=== PATIENT | female | born 2000 ===

== ENCOUNTER 2020-11-21 11:11 | Outpatient (CLI) | payer OTHER ==
[2020-11-21] MEDS ORDERED: LACTATED RINGERS 500 ML IV ONE (11:45)
[2020-11-21] MEDS: LACTATED RINGERS 1,000 ML IV SCH ×2 (14:49→14:50)
--- NOTE | 2020-11-21 15:02 | Ultrasound Report ---
Limited abdominal Ultrasound Biophysical profile HISTORY: decreased movement. TECHNIQUE: Grayscale and color imaging performed. COMPARISON: None FINDINGS: There is a single viable intrauterine gestation with cephalic presentation and RISHI of 20 cm . Heart rate is 130 bpm. On biophysical profile, the fetus received a score of 2 out of 2 for breathing, movement, posture/ton e, and RISHI. Total score was 8 out of 8. IMPRESSION: 1. Single viable intrauterine gestation. 2. Normal biophysical profile. Signer Name: Conor Christie MD Signed: 11/21/2020 2:57 PM Workstation Name: [id number]
[2020-11-21] MEDS ORDERED: TERBUTALINE 1 MG/1 ML INJ ONE (15:12)
[2020-11-21 15:46] VITALS: BP 113/63
[2020-11-21] MEDS ORDERED: TERBUTALINE 1 MG/1 ML INJ SUB-Q SCH (16:00)
== END 2020-11-21 16:07 | disposition home or self-care (01) ==
LOC: TRG 11:11 → APU 11:16 → TRG 16:07
PROVIDERS: ATTEND Obstetrics & Gynecology
DX: O36.8130 Decreased fetal movements, third trimester, not applicable or unspecified (principal); O47.03 False labor before 37 completed weeks of gestation, third trimester; O99.353 Diseases of the nervous system complicating pregnancy, third trimester; G43.909 Migraine, unspecified, not intractable, without status migrainosus; Z3A.30 30 weeks gestation of pregnancy
CPT/HCPCS: 59025; 76815; 76819; 96360; 96372; J3105; J7120; 96361

== ENCOUNTER 2021-02-02 03:01 | Inpatient (IN) | payer OTHER ==
--- NOTE | 2021-02-02 04:10 | History and Physical Report ---
History of Present Illness Date of examination: 02/02/21 Date of admission: 02/02/2021 Chief complaint: contractions History of present illness: EDC Confirmation: 01/26/2021 Gestational Age: 41 weeks Past History : 2 Term Births: 0 Premature Births: 0 Living Children: 0 Para: 0 Mult. Births: 0 Prev : 0 Prev. attempt? 0 Aborta: 1 Elect. Ab: 1 Spont. Ab: 0 Ectopics: 0 # 1 Weeks Gestation: 10 Delivery type: EAB Past Medical History: Neurologic Disorder- Migraines Pulmonary Stenosis Past Surgical History: Reviewed history and no changes required: negative Past Medical History Anesthesia Complications: negative Anemia: negative Autoimmune Disorder: negative Bleeding Disorder: negative Blood Transfusions: negative Breast Disease: negative Diabetes: negative Heart Disease: negative Hypertension: negative Hepatitis/Liver Disease: negative Kidney Disease/UTI: negative Neurologic/Epilepsy/Migraines: yes Phlebitis/Varicosities: negative Psychiatric: negative Pulmonary Disease/Asthma: negative Thyroid Disease: negative Hospitalizations: negative Surgery (Non-research and development specialist): negative Abnormal PAP: negative DEE Exposure: negative Infertility: negative Uterine Anomaly: negative Uterine Surgery (not C/S): negative Other Gynecologic Problems: negative 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 of genital herpes: no Partner hx. of genital herpes: no Rash, Viral, or Febrile illness since last LMP? no Varicella/Chicken Pox Status: Immunized TB Risk: no Genetic History Congenital Heart Defect: Mom: no Dad: no Rene Disease: Mom: no Dad: no Thalassemia Mom: no Dad: no Neural Tube Defect Mom: no Dad: no Down's Syndrome Mom: no Dad: no Ronan-Sachs Mom: no Dad: no Sickle Cell Disease/Trait Mom: no Dad: no Hemophilia Mom: no Dad: no Muscular Dystrophy Mom: no Dad: no Cystic Fibrosis Mom: no Dad: no Vickie Chorea Mom: no Dad: no Mental Retardation Mom: no Dad: no Fragile X Mom: no Dad: no Other Genetic/Chromosomal Disorder Mom: no Dad: no Child w/other defect Mom: no Dad: no Enviromental Exposures Xray Exposure: no Medication, drug, or alcohol use since LMP: no Chemical/Other Exposure: no Exposure to Cat Liter: yes Hx of Parvovirus (Fifth Disease): no Occupational Exposure to Children: none Current Allergies (reviewed today): No known allergies Past History Past Medical History: other (see HPI) Past Surgical History: other (see HPI) 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) Family/Genetic History: other (see HPI) Social history: other (see HPI) - Obstetrical History Expected Date of Delivery: 01/26/21 Actual Gestation: 41 Week(s) 0 Day(s) : 2 Para: 0 Hx # Term Pregnancies: 0 Number of Pregnancies: 0 Spontaneous Abortions: 0 Induced : 1 Number of Living Children: 0 Medications and Allergies Allergies Allergy/AdvReac Type Severity Reaction Status Date / Time No Known Allergies Allergy Unverified 11/21/20 12:37 Review of Systems All systems: negative Genitourinary: contractions - Vital Signs Vital signs: Vital Signs Temp Pulse Resp BP 98.8 F 105 H 18 108/58 02/02/21 03:17 02/02/21 03:17 02/02/21 03:17 02/02/21 03:17 Temp Pulse Resp BP Pulse Ox 98.8 F 105 H 18 108/58 02/02/21 03:17 02/02/21 03:17 02/02/21 03:17 02/02/21 03:17 - Physical Exam Breasts: Positive: deferred Cardiovascular: Regular rate Lungs: Positive: Normal air movement Abdomen: Positive: normal appearance, soft Genitourinary (Female): Positive: normal external genitalia, normal perenium Vulva: both: normal Vagina: Positive: normal moisture Uterus: Positive: normal size, normal contour Anus/Rectum: Positive: normal perianal skin Extremities: Positive: normal - Obstetrical FHR: auscultation normal, category 1 Uterine Contraction Monitor Mode: External Uterine Contraction Pattern: Regular Uterine Tone Measurement Phase: Contraction Uterine Contraction Intensity: Mild Results All other labs normal. Tests: (1) Ct, Ng, Trich vag by EMRE ([id number]) Order Note: Clinical Information: SRC:VR SRC:UR Chlamydia by EMRE Negative Negative *1 Gonococcus by EMRE Negative Negative *2 Trich vag by EMRE Negative Negative *3 Tests: (2) Strep Gp B EMRE ([id number]) ! Strep Gp B EMRE Negative Negative *4 Document Creation Date: 12/26/2020 2:15 PM Tests: (1) Profile I ([id number]) Order Note: Clinical Information: SRC:UR SRC:UR HBsAg Screen Negative Negative *1 RPR Non Reactive Non Reactive *2 Rubella Antibodies, IgG 1.43 index Immune >0.99 *3 Non-immune <0.90 Equivocal 0.90 - 0.99 Immune >0.99 ABO Grouping O *4 Rh Factor Positive *5 Please note: Prior records for this patient's ABO / Rh type are not available for additional verification. Antibody Screen Negative Negative *6 WBC 7.1 x10E3/uL 3.4-10.8 *7 RBC 3.81 x10E6/uL 3.77-5.28 *8 Hemoglobin 12.0 g/dL 11.1-15.9 *9 Hematocrit 36.2 % 34.0-46.6 *10 MCV 95 fL 79-97 *11 MCH 31.5 pg 26.6-33.0 *12 MCHC 33.1 g/dL 31.5-35.7 *13 RDW 13.0 % 11.7-15.4 *14 Platelets 211 x10E3/uL 150-450 *15 Neutrophils 65 % Not Estab. *16 Lymphs 29 % Not Estab. *17 Monocytes 5 % Not Estab. *18 Eos 1 % Not Estab. *19 Basos 0 % Not Estab. *20 ! Immature Cells <No Reported Value> *21 Neutrophils (Absolute) 4.7 x10E3/uL 1.4-7.0 *22 Lymphs (Absolute) 2.1 x10E3/uL 0.7-3.1 *23 Monocytes(Absolute) 0.3 x10E3/uL 0.1-0.9 *24 Eos (Absolute) 0.1 x10E3/uL 0.0-0.4 *25 Baso (Absolute) 0.0 x10E3/uL 0.0-0.2 *26 ! Immature Granulocytes 0 % Not Estab. *27 ! Immature Grans (Abs) 0.0 x10E3/uL 0.0-0.1 *28 ! NRBC <No Reported Value> *29 Hematology Comments: <No Reported Value> *30 Tests: (2) Ct, Ng, Trich vag by EMRE ([id number]) Chlamydia by EMRE Negative Negative *31 Gonococcus by EMRE Negative Negative *32 Trich vag by EMRE Negative Negative *33 Tests: (3) HB Solu + Rflx Frac ([id number]) Hemoglobin (Hgb) Solubility Negative Negative *34 Tests: (4) Toxoplasma gondii Ab, IgG ([id number]) ! Toxoplasma gondii Ab,IgG <3.0 IU/mL 0.0-7.1 *35 Negative <7.2 Equivocal 7.2 - 8.7 Positive >8.7 Tests: (5) Cytomegalovirus (CMV) Ab, IgG ([id number]) ! Cytomegalovirus (CMV) Ab, IgG <0.60 U/mL 0.00-0.59 *36 Negative <0.60 Equivocal 0.60 - 0.69 Positive >0.69 Tests: (6) HIV Ag/Ab with Reflex ([id number]) HIV Screen 4th Generation wRfx Non Reactive Non Reactive *37 Tests: (7) HCV Ab w/Rflx to Verification ([id number]) ! HCV Ab <0.1 s/co ratio 0.0-0.9 *38 Tests: (8) Comment: ([id number]) ! Comment: SPRCS *39 Non reactive HCV antibody screen is consistent with no HCV infection, unless recent infection is suspected or other evidence exists to indicate HCV infection. Effective September 02, 2020 HCV Ab w/Rflx to Verification will be made non-orderable. [facility] [id number] HCV Antibody reflex to EMRE. Tests: (9) Urine Culture, Routine ([id number]) Urine Culture, Routine Final report *40 Tests: (10) Result ([id number]) ! Result 1 No growth *41 Performed At: , [address] [id number] Dameon Diaz MD Phone: [phone] Note: An exclamation branden (!) indicates a result that was not dispersed into the flowsheet. Document Creation Date: 07/30/2020 11:16 AM Ultrasound: report reviewed (on 01/31/21 US in office with EFW 36% 7lbs 6oz RISHI 12cm) Assessment and Plan pt @41wks presents to triage with c/o contractions for the last few hours <10mins apart, SVE 3/70/-3 per RN; pt desires admission to labor and delivery. Labs and records reviewed; Pt reports geophysical support specialist report WNL and pt ok to have vaginal delivery. POC d/w with pt. - Patient Problems (1) Pulmonary stenosis Current Visit: Yes Status: Acute (2) Active labor Current Visit: Yes Status: Acute (3) 41 weeks gestation of Current Visit: Yes Status: Acute
[2021-02-02] MEDS ORDERED: TERBUTALINE 1 MG/1 ML INJ SUB-Q PRN (04:18)
[2021-02-02] MEDS ORDERED: OXYTOCIN 10 UNIT/1 ML INJ IM PRN (04:18)
[2021-02-02] MEDS ORDERED: LIDOCAINE (2%) 20 MG/1 ML VIAL 20 ML MDV INFILTRATI ONE (04:18)
[2021-02-02] MEDS ORDERED: LOPERAMIDE 2 MG CAP PO PRN (04:18)
[2021-02-02] MEDS ORDERED: miSOPROStol 200 MCG TAB PR PRN (04:18)
[2021-02-02] MEDS ORDERED: METHYLERGONOVINE MALEATE 0.2 MG/ML VIAL IM PRN (04:18)
[2021-02-02] MEDS ORDERED: MINERAL OIL 30 ML ORAL LIQD PO PRN (04:18)
[2021-02-02] MEDS ORDERED: ONDANSETRON 4 MG/2 ML INJ IV PRN (04:18)
[2021-02-02] MEDS ORDERED: CARBOPROST TROMETHAMINE 250 MCG/1 ML INJ IM PRN (04:18)
[2021-02-02] MEDS ORDERED: fentaNYL 100 MCG/2 ML INJ IV PRN ×2 (04:18→08:00)
[2021-02-02] MEDS ORDERED: ePHEDrine SULFATE 50 MG/1 ML INJ IV PRN ×2 (04:18→19:14)
[2021-02-02] MEDS: LACTATED RINGERS 1,000 ML IV SCH ×3 (04:51→20:05)
[2021-02-02 04:53] LABS: Hematocrit 33.8 % (30.3-42.9); Hemoglobin 11.5 gm/dl (10.1-14.3); Mean Corpuscular HGB Conc 34 % (30-34); Mean Corpuscular Volume 93 fl (79-97); Platelet Count 221 K/mm3 (140-440); Red Blood Count 3.62 M/mm3 (3.65-5.03); Red Cell Distribution Width 15.2 % (13.2-15.2)
[2021-02-02] MEDS ORDERED: OXYTOCIN DRIP 30 UNITS/500 ML BAG IV SCH ×2 (05:00→23:00)
--- NOTE | 2021-02-02 13:10 | Event Note ---
Date: 02/02/21 Pt sitting up in bed, reports feeling some contractions but overall resting. SVE /-2; Augmentation discussed with pt and pt agrees. Orders placed. Pt reports desire for epidural. POC reviewed and all questions addressed.
[2021-02-02] MEDS ORDERED: OXYTOCIN DRIP 30,000 MILLIUNITS/500 ML BAG IV ONE (14:00)
[2021-02-02] MEDS ORDERED: NALOXONE 2 MG/2 ML INJ IV PRN (19:14)
--- NOTE | 2021-02-02 19:15 | Anesthesia Consultation ---
Anesthesia Consult and Med Hx Date of service: 02/02/21 - Airway Anesthetic Teeth Evaluation: Good ROM Head & Neck: Adequate Mental/Hyoid Distance: Adequate Mallampati Class: Class II Intubation Access Assessment: Probably Good - Pulmonary Exam CTA: Yes - Cardiac Exam Cardiac Exam: RRR - Pre-Operative Health Status ASA Pre-Surgery Classification: ASA2 Proposed Anesthetic Plan: Epidural - Pulmonary Hx Smoking: No Hx Asthma: No Hx Respiratory Symptoms: No SOB: No COPD: No Home Oxygen Therapy: No Hx Pneumonia: No Hx Sleep Apnea: No - Cardiovascular System Hx Hypertension: No Hx Coronary Artery Disease: No Hx Heart Attack/AMI: No Hx Angina: No Hx Percutaneous Transluminal Coronary Angioplasty (PTCA): No Hx Cardia Arrhythmia: No Hx Pacemaker: No Hx Internal Defibrillator: No Hx Valvular Heart Disease: No Hx Heart Murmur: No Hx Peripheral Vascular Disease: No - Central Nervous System Hx Neuromuscular Disorder: Yes (migraine ) Hx Seizures: No CVA: No Hx Back Pain: No Hx Psychiatric Problems: Yes (depression) - Gastrointestinal Hx Ulcer: No Hx Gastroesophageal Reflux Disease: Yes - Endocrine Hx Renal Disease: No Hx End Stage Renal Disease: No Hx Cirrhosis: No Hx Liver Disease: No Hx Insulin Dependent Diabetes: No Hx Non-Insulin Dependent Diabetes: No Hx Thyroid Disease: No Hx Hypothyroidism: No Hx Hyperthyroidism: No - Hematic Hx Anemia: No Hx Sickle Cell Disease: No - Other Systems Hx Alcohol Use: No Hx Substance Use: No Hx Cancer: No Hx Obesity: Yes
[2021-02-02] MEDS ORDERED: fentaNYL-BUPIV 2 MCG/ML-0.125% 200 MCG/100 ML BAG EPIDURAL SCH (20:00)
--- NOTE | 2021-02-02 20:05 | Progress Note ---
Labor Epidural - Labor Epidural Start Time: 19:27 Stop Time: 19:44 Performed by:: GLORIA NOVA Procedure: Patient is requesting a laboring epidural for laboring pain. Patient IDed, H&P reviewed, all questions and concerns were answered, and consent was signed. Timeout was performed at bedside. Patient in sitting position. Sterile prep and drape was performed. [3] ml of 1% lidocaine skin wheal at L[3]- L [4]. 18- gauge Tuohy epidural needle was advanced to loss of resistance with saline technique 7cm. Negative CSF negative blood. Epidural catheter advanced to [12] centimeters. [NEGATIVE] Aspiration [NEGATIVE] test dose. Sterile dressing applied. Patient tolerated procedure.
[2021-02-02] MEDS ORDERED: FAMOTIDINE 20 MG/2 ML INJ IV ONE (22:28)
[2021-02-02] MEDS ORDERED: BICITRA ORAL LIQD 30ML PO ONE (22:28)
[2021-02-02] MEDS ORDERED: METOCLOPRAMIDE 10 MG/2 ML INJ IV ONE (22:28)
[2021-02-02] MEDS ORDERED: AZITHROMYCIN/NS 500 MG/250 ML 500 MG/250 ML BAG IV ONE (22:28)
[2021-02-02] MEDS ORDERED: METHYLERGONOVINE MALEATE 0.2 MG/ML VIAL IM ONE (22:29)
[2021-02-02] MEDS ORDERED: miSOPROStol 200 MCG TAB ONE (22:29)
[2021-02-02] MEDS ORDERED: CARBOPROST TROMETHAMINE 250 MCG/1 ML INJ IM ONE (22:29)
[2021-02-02] MEDS ORDERED: LACTATED RINGERS 1,000 ML IV SCH (22:30)
--- NOTE | 2021-02-02 22:35 | Progress Note ---
Assessment and Plan Pt comfortable s/p epidural; FHT's CAT2 with 5 minute decel and SVE unchanged [id number], despite augmentation. Pitocin turned off. Dr. [place] made aware and en route to hospital. Pt consented for C/S and new orders placed. - Patient Problems (1) Pulmonary stenosis Current Visit: Yes Status: Acute (2) Active labor Current Visit: Yes Status: Acute (3) 41 weeks gestation of Current Visit: Yes Status: Acute Subjective - Subjective Date of service: 02/02/21 Principal diagnosis: IUP @ 41wks, active labor Patient reports: no new complaints Objective - Vital Signs Vital Signs: Vital Signs - 12hr 02/02/21 02/02/21 02/02/21 10:36 10:41 10:46 Temperature Pulse Rate 107 H 100 H 92 H Respiratory Rate Blood Pressure O2 Sat by Pulse 98 97 97 Oximetry 02/02/21 02/02/21 02/02/21 10:51 10:56 11:01 Temperature Pulse Rate 98 H 94 H 92 H Respiratory Rate Blood Pressure O2 Sat by Pulse 98 98 97 Oximetry 02/02/21 02/02/21 02/02/21 11:03 11:07 11:12 Temperature Pulse Rate 119 H 54 L 102 H Respiratory Rate Blood Pressure O2 Sat by Pulse 90 80 L 99 Oximetry 02/02/21 02/02/21 02/02/21 11:17 11:22 11:27 Temperature Pulse Rate 105 H 105 H 96 H Respiratory Rate Blood Pressure O2 Sat by Pulse 98 98 98 Oximetry 02/02/21 02/02/21 02/02/21 11:32 11:37 11:42 Temperature Pulse Rate 95 H 98 H 94 H Respiratory Rate Blood Pressure O2 Sat by Pulse 98 98 98 Oximetry 02/02/21 02/02/21 02/02/21 11:47 11:52 11:57 Temperature Pulse Rate 101 H 104 H 97 H Respiratory Rate Blood Pressure O2 Sat by Pulse 98 98 99 Oximetry 02/02/21 02/02/21 02/02/21 12:02 12:07 12:12 Temperature Pulse Rate 104 H 99 H 100 H Respiratory Rate Blood Pressure O2 Sat by Pulse 99 98 98 Oximetry 02/02/21 02/02/21 02/02/21 12:17 12:22 12:27 Temperature Pulse Rate 97 H 96 H 96 H Respiratory Rate Blood Pressure O2 Sat by Pulse 99 100 99 Oximetry 02/02/21 02/02/21 02/02/21 12:32 12:37 12:42 Temperature Pulse Rate 103 H 102 H 103 H Respiratory Rate Blood Pressure O2 Sat by Pulse 99 98 99 Oximetry 02/02/21 02/02/21 02/02/21 12:47 12:52 12:57 Temperature Pulse Rate 103 H 95 H 99 H Respiratory Rate Blood Pressure O2 Sat by Pulse 99 98 98 Oximetry 02/02/21 02/02/21 02/02/21 13:02 13:07 13:12 Temperature Pulse Rate 97 H 98 H 98 H Respiratory Rate Blood Pressure O2 Sat by Pulse 100 99 98 Oximetry 02/02/21 02/02/21 02/02/21 13:17 13:22 13:27 Temperature Pulse Rate 102 H 101 H 115 H Respiratory Rate Blood Pressure O2 Sat by Pulse 98 99 99 Oximetry 02/02/21 02/02/21 02/02/21 13:32 13:37 13:42 Temperature Pulse Rate 100 H 100 H 103 H Respiratory Rate Blood Pressure O2 Sat by Pulse 99 100 100 Oximetry 02/02/21 02/02/21 02/02/21 13:47 13:52 13:57 Temperature Pulse Rate 97 H 92 H 97 H Respiratory Rate Blood Pressure O2 Sat by Pulse 99 100 98 Oximetry 02/02/21 02/02/21 02/02/21 14:04 14:05 14:09 Temperature 97.8 F Pulse Rate 183 H 101 H Respiratory 18 Rate Blood Pressure O2 Sat by Pulse 90 99 Oximetry 02/02/21 02/02/21 02/02/21 14:14 14:19 14:24 Temperature Pulse Rate 98 H 99 H 93 H Respiratory Rate Blood Pressure O2 Sat by Pulse 100 100 100 Oximetry 02/02/21 02/02/21 02/02/21 14:29 14:34 14:39 Temperature Pulse Rate 100 H 105 H 105 H Respiratory Rate Blood Pressure O2 Sat by Pulse 100 100 100 Oximetry 02/02/21 02/02/21 02/02/21 14:44 14:49 14:54 Temperature Pulse Rate 108 H 94 H 99 H Respiratory Rate Blood Pressure O2 Sat by Pulse 99 100 100 Oximetry 02/02/21 02/02/21 02/02/21 14:59 15:04 15:09 Temperature Pulse Rate 92 H 87 87 Respiratory Rate Blood Pressure O2 Sat by Pulse 99 99 99 Oximetry 02/02/21 02/02/21 02/02/21 15:14 15:19 15:24 Temperature Pulse Rate 84 116 H 91 H Respiratory Rate Blood Pressure O2 Sat by Pulse 98 97 99 Oximetry 02/02/21 02/02/21 02/02/21 15:29 15:34 15:39 Temperature Pulse Rate 98 H 104 H 103 H Respiratory Rate Blood Pressure O2 Sat by Pulse 98 98 99 Oximetry 02/02/21 02/02/21 02/02/21 15:44 15:49 15:54 Temperature Pulse Rate 87 90 92 H Respiratory Rate Blood Pressure O2 Sat by Pulse 98 98 98 Oximetry 02/02/21 02/02/21 02/02/21 15:59 16:04 16:09 Temperature Pulse Rate 91 H 83 88 Respiratory Rate Blood Pressure O2 Sat by Pulse 98 99 98 Oximetry 02/02/21 02/02/21 02/02/21 16:14 16:19 16:24 Temperature Pulse Rate 95 H 100 H 90 Respiratory Rate Blood Pressure O2 Sat by Pulse 99 98 98 Oximetry 02/02/21 02/02/21 02/02/21 16:29 16:34 16:38 Temperature Pulse Rate 87 110 H Respiratory Rate Blood Pressure O2 Sat by Pulse 99 99 88 Oximetry 02/02/21 02/02/21 02/02/21 16:39 16:44 16:49 Temperature Pulse Rate 104 H 111 H 94 H Respiratory Rate Blood Pressure O2 Sat by Pulse 99 98 98 Oximetry 02/02/21 02/02/21 02/02/21 16:54 16:59 17:04 Temperature Pulse Rate 115 H 97 H 109 H Respiratory Rate Blood Pressure O2 Sat by Pulse 98 99 100 Oximetry 02/02/21 02/02/21 02/02/21 17:09 17:14 17:19 Temperature Pulse Rate 103 H 100 H 99 H Respiratory Rate Blood Pressure O2 Sat by Pulse 100 99 99 Oximetry 02/02/21 02/02/21 02/02/21 17:24 17:29 17:34 Temperature Pulse Rate 100 H 108 H 106 H Respiratory Rate Blood Pressure O2 Sat by Pulse 99 99 99 Oximetry 02/02/21 02/02/21 02/02/21 17:39 17:44 17:49 Temperature Pulse Rate 98 H 98 H 100 H Respiratory Rate Blood Pressure O2 Sat by Pulse 100 98 98 Oximetry 02/02/21 02/02/21 02/02/21 17:54 17:59 18:04 Temperature Pulse Rate 99 H 97 H 113 H Respiratory Rate Blood Pressure O2 Sat by Pulse 99 99 98 Oximetry 02/02/21 02/02/21 02/02/21 18:09 18:14 18:19 Temperature Pulse Rate 107 H 117 H 105 H Respiratory Rate Blood Pressure O2 Sat by Pulse 99 97 99 Oximetry 02/02/21 02/02/21 02/02/21 18:24 18:29 18:34 Temperature Pulse Rate 120 H 116 H 118 H Respiratory Rate Blood Pressure O2 Sat by Pulse 98 98 99 Oximetry 02/02/21 02/02/21 02/02/21 18:39 18:44 18:49 Temperature Pulse Rate 129 H 106 H 108 H Respiratory Rate Blood Pressure O2 Sat by Pulse 98 98 99 Oximetry 02/02/21 02/02/21 02/02/21 18:54 18:59 19:04 Temperature Pulse Rate 107 H 104 H 107 H Respiratory Rate Blood Pressure O2 Sat by Pulse 100 99 99 Oximetry 02/02/21 02/02/21 02/02/21 19:06 19:11 19:12 Temperature Pulse Rate 80 83 Respiratory Rate Blood Pressure O2 Sat by Pulse 87 85 79 L Oximetry 02/02/21 02/02/21 02/02/21 19:15 19:16 19:18 Temperature 98.5 F Pulse Rate 114 H 115 H Respiratory 18 Rate Blood Pressure 127/82 O2 Sat by Pulse 98 Oximetry 02/02/21 02/02/21 02/02/21 19:21 19:23 19:26 Temperature Pulse Rate 107 H 110 H 116 H Respiratory Rate Blood Pressure 128/82 117/72 O2 Sat by Pulse 99 99 Oximetry 02/02/21 02/02/21 02/02/21 19:28 19:30 19:31 Temperature Pulse Rate 114 H 120 H 117 H Respiratory Rate Blood Pressure 128/73 134/65 O2 Sat by Pulse 98 Oximetry 02/02/21 02/02/21 02/02/21 19:32 19:35 19:36 Temperature Pulse Rate 120 H 117 H 111 H Respiratory Rate Blood Pressure 132/66 148/65 128/68 O2 Sat by Pulse 99 Oximetry 02/02/21 02/02/21 02/02/21 19:38 19:40 19:41 Temperature Pulse Rate 116 H 123 H 123 H Respiratory Rate Blood Pressure 138/60 136/63 O2 Sat by Pulse 99 Oximetry 02/02/21 02/02/21 02/02/21 19:42 19:44 19:46 Temperature Pulse Rate 123 H 123 H 118 H Respiratory Rate Blood Pressure 135/82 132/65 127/63 O2 Sat by Pulse 99 Oximetry 02/02/21 02/02/21 02/02/21 19:48 19:55 19:56 Temperature Pulse Rate 120 H 108 H 111 H Respiratory Rate Blood Pressure 128/80 123/64 122/72 O2 Sat by Pulse 99 Oximetry 02/02/21 02/02/21 02/02/21 19:58 20:00 20:02 Temperature Pulse Rate 105 H 91 H 108 H Respiratory Rate Blood Pressure 124/72 128/77 121/73 O2 Sat by Pulse 99 Oximetry 02/02/21 02/02/21 02/02/21 20:04 20:05 20:06 Temperature Pulse Rate 100 H 103 H 101 H Respiratory Rate Blood Pressure 122/73 122/71 O2 Sat by Pulse 98 Oximetry 02/02/21 02/02/21 02/02/21 20:08 20:10 20:14 Temperature Pulse Rate 110 H 106 H 102 H Respiratory Rate Blood Pressure 118/67 122/80 O2 Sat by Pulse 97 Oximetry 02/02/21 02/02/21 02/02/21 20:15 20:19 20:20 Temperature Pulse Rate 108 H 106 H 104 H Respiratory Rate Blood Pressure 126/82 O2 Sat by Pulse 98 97 Oximetry 02/02/21 02/02/21 02/02/21 20:24 20:25 20:29 Temperature Pulse Rate 107 H 100 H 93 H Respiratory Rate Blood Pressure 123/79 119/75 O2 Sat by Pulse 97 Oximetry 02/02/21 02/02/21 02/02/21 20:30 20:34 20:35 Temperature Pulse Rate 94 H 95 H 96 H Respiratory Rate Blood Pressure 121/74 O2 Sat by Pulse 99 99 Oximetry 02/02/21 02/02/21 02/02/21 20:39 20:40 20:44 Temperature Pulse Rate 110 H 106 H 102 H Respiratory Rate Blood Pressure 120/72 125/81 O2 Sat by Pulse 98 Oximetry 0602/02/21 02/02/21 20:45 20:50 20:55 Temperature Pulse Rate 98 H 102 H 94 H Respiratory Rate Blood Pressure 141/76 147/74 O2 Sat by Pulse 98 99 99 Oximetry 02/02/21 02/02/21 02/02/21 20:59 21:00 21:05 Temperature Pulse Rate 96 H 94 H 99 H Respiratory Rate Blood Pressure 134/70 116/62 O2 Sat by Pulse 98 98 Oximetry 02/02/21 02/02/21 02/02/21 21:09 21:10 21:14 Temperature Pulse Rate 90 95 H 88 Respiratory Rate Blood Pressure 118/61 118/65 O2 Sat by Pulse 98 Oximetry 02/02/21 02/02/21 02/02/21 21:15 21:20 21:25 Temperature Pulse Rate 90 100 H 98 H Respiratory Rate Blood Pressure O2 Sat by Pulse 98 99 99 Oximetry 02/02/21 02/02/21 02/02/21 21:30 21:34 21:35 Temperature Pulse Rate 108 H 100 H 105 H Respiratory Rate Blood Pressure 104/52 O2 Sat by Pulse 99 99 Oximetry 02/02/21 02/02/21 02/02/21 21:40 21:44 21:45 Temperature Pulse Rate 117 H 103 H 102 H Respiratory Rate Blood Pressure 103/60 O2 Sat by Pulse 99 99 Oximetry 02/02/21 02/02/21 02/02/21 21:49 21:50 21:55 Temperature Pulse Rate 103 H 99 H 94 H Respiratory Rate Blood Pressure 99/58 O2 Sat by Pulse 100 99 Oximetry 02/02/21 02/02/21 02/02/21 22:00 22:04 22:11 Temperature Pulse Rate 90 106 H 86 Respiratory Rate Blood Pressure 109/52 O2 Sat by Pulse 99 100 Oximetry 02/02/21 02/02/21 02/02/21 22:12 22:16 22:18 Temperature Pulse Rate 80 87 86 Respiratory Rate Blood Pressure 117/60 120/63 O2 Sat by Pulse 100 Oximetry 02/02/21 02/02/21 02/02/21 22:21 22:26 22:31 Temperature Pulse Rate 107 H 118 H 111 H Respiratory Rate Blood Pressure O2 Sat by Pulse 100 100 100 Oximetry - Exam Breasts: deferred Cardiovascular: Regular rate Lungs: Normal air movement Abdomen: Present: normal appearance, soft Vulva: both: normal Uterus: Present: normal FHR: category 2 Uterine Contraction Monitor Mode: Internal Cervical Dilatation: 5 Uterine Contraction Pattern: Regular Uterine Tone Measurement Phase: Contraction Uterine Contraction Intensity: Moderate Extremities: normal - Labs Labs: Abnormal Labs 02/02/21 04:30 RBC 3.62 L Laboratory Results - last 24 hr 02/02/21 02/02/21 02/02/21 04:30 04:30 04:30 WBC 10.1 RBC 3.62 L Hgb 11.5 Hct 33.8 MCV 93 MCH 32 MCHC 34 RDW 15.2 Plt Count 221 Syphilis IgG Antibody Nonreactive Blood Type O POSITIVE Antibody Screen Negative
[2021-02-02] MEDS ORDERED: LIDOCAINE 2%/EPINEPHRINE 1:200,000 VIAL (20 ML) INFILTRATI ONE (22:41)
[2021-02-02] MEDS ORDERED: ceFAZolin/Water 2 GM/20 ML 2 GM/20 ML SYRINGE IV NR (23:00)
[2021-02-02] MEDS ORDERED: SODIUM CHLORIDE 0.9% IRR 1,500 ML BOTTLE IR ONE (23:22)
[2021-02-02] MEDS ORDERED: ONDANSETRON 4 MG/2 ML INJ ONE ×2 (23:37)
[2021-02-02] MEDS ORDERED: ceFAZolin 1 GM VIAL IV ONE (23:40)
[2021-02-02] MEDS ORDERED: KETOROLAC 30 MG/1 ML INJ ONE (23:47)
[2021-02-03] MEDS ORDERED: dexAMETHasone 20 MG/5 ML VIAL ONE (00:39)
[2021-02-03] MEDS ORDERED: LANOLIN/ZINC/DIMETHICONE (LANSINOH) 7 GM TP PRN (01:29)
[2021-02-03] MEDS ORDERED: WITCH HAZEL/ GLYCERIN PAD TP PRN (01:29)
[2021-02-03] MEDS ORDERED: NALOXONE 0.4 MG/1 ML INJ IV PRN (01:29)
--- NOTE | 2021-02-03 01:29 | Operative Report ---
Operative Report Operative Report: Date of procedure: 02/03/2021 Pre-operative diagnosis: 41 weeks gestation Obesity Meconium Failure to progress intolerance to labor Post-operative diagnosis: Same Procedure name(s): Primary low transverse section via Pfannenstiel skin incision Surgeon: Dr. [place] Principal Gifts Officer: Ms. Paul CNM Anesthesia: Epidural EBL: 401 q. BL Urine output: 100ml of clear urine out at end of the procedure Fluids: 1600ml Findings: Liveborn male infant 8 pounds 3 ounces Apgars of 8 and 9 at 1 and 5 minutes 21 inches long Grossly normal fallopian tubes and ovaries bilaterally Indications: Patient presented in active labor. Patient progressed approximately 5 to 6 cm and therefore had arrest of labor at this time. Patient was augmented and was unable to tolerate augmentation as well as was noted to have no cervical climate change risk assessor 5 to 7 hours. Decision was made at this time to proceed with primary section. All risk benefits and alternatives were discussed with the patient consents were signed and placed on the chart. Procedure: Patient was taking to the operating room. Patient was then prepped and draped in sterile fashion after anesthesia was found to be adequate. A low transverse skin incision was made with the scalpel and carried down to the underlying layer of fascia with the Bovie. The fascia was then incised in the midline and this incision was extended bilaterally with the Bovie. The superior aspect of the fascia was grasped with Obed clamps tented upward and dissected off of the anterior rectus muscles with the scalpel. In similar fashion the inferior aspect of the fascia was grasped with Obed clamps tented upward and dissected off of the anterior rectus muscles. The rectus muscles were then bluntly divided in the midline. The peritoneum was identified and entered into sharply. The bladder blade was placed. The bladder flap was created using the Metzenbaum scissors. The Abdias retractor was placed. The bladder blade was replaced. A lower transverse uterine incision was made with the scalpel and extended bilaterally with blunt dissection. Artificial rupture of membranes was performed yielding [clear amniotic fluid]. The 's head was then delivered atraumatically. The anterior shoulder and rest of delivered without difficulty. The umbilical cord was clamped x2. The cord was cut. The was then placed in sterile bassinet. [The cord blood was collected.] The placenta was manually extracted in its entirety. The uterus was exteriorized and cleared of all clots and debris. The uterine incision was closed using 0 Vicryl in a running locking fashion. A second imbricating layer of the same suture was then created. The posterior cul-de-sac was copiously irrigated. The uterus was returned to the abdomen. The gutters were also irrigated. The anterior rectus muscles were reapproximated using 3-0 Vicryl. The anterior rectus fascia was reapproximated using 0 Vicryl in a running fashion. The subcuticular fat was reapproximated using 2-0 Vicryl in a running fashion. The skin was reapproximated with 4-0 Monocryl in a subcuticular stitch. The patient tolerated the procedure well. Sponge lap and needle counts were all correct x3. Patient was taken to the recovery room awake and in stable condition.
[2021-02-03] MEDS: ceFAZolin/NS 1 GM/50 ML 1 GM/50 ML BAG IV SCH ×2 (02:30→11:40)
--- NOTE | 2021-02-03 04:28 | Anesthesia Day of Surgery ---
Anesthesia Day of Surgery - Day of Surgery Patient Examined: Yes Patient H&P Reviewed: Yes Patient is NPO: Yes Beta Blockers: No Cardiac Clearance: No Pulmonary Clearance: No Rory's Test: N/A
--- NOTE | 2021-02-03 04:29 | Post Anesthesia Evaluation ---
- Post Anesthesia Evaluation Patient Participated: Yes Airway Patent: Yes Stable Respiratory Function: Yes Nausea/Vomiting: No Temp > 96.8F: Yes Pain Manageable: Yes Adequeate Hydration: Yes Anesthesia Complications: No Block Receding Appropriately: Yes Patient on Ventilator: No
--- NOTE | 2021-02-03 04:29 | Progress Note ---
Regional Anesthesia Block - Regional Anesthesia Block Start Time: 00:51 Stop Time: 00:58 Performed By:: GLORIA NOVA Procedure: Patient consented for TAP block for post surgical pain management. Patient identified, monitors placed, and time out performed. TAP identified bilaterally via ultrasound. Skin prepped bilaterally with [chlorhexidine] and [22g stimuplex] needle advanced to the TAP. [Marcaine 0.22% 35ml] injected under ultrasound guidance on the [left] side. [Marcaine 0.22% 35ml] injected under ultrasound guidance on the [right] side. Negative aspiration every 5mL, No change in heart rate or rhythm. Patient tolerated the procedure well. No apparent complications seen.
[2021-02-03] MEDS: LACTATED RINGERS 1,000 ML IV SCH (04:41)
[2021-02-03] MEDS: KETOROLAC 30 MG/1 ML INJ IV PRN ×2 (11:40→21:27)
[2021-02-03 15:52] LABS: Hematocrit 28.6 % (30.3-42.9); Hemoglobin 9.6 gm/dl (10.1-14.3)
[2021-02-03] MEDS: HYDROcodone/ACETAMINOPHEN 5-325 MG TAB PO PRN ×2 (18:27→23:57)
[2021-02-04] MEDS ORDERED: TETANUS,DIPH,PERTUSS(ACELL) VACCINE 0.5 ML SYRINGE IM ONE ×2 (01:30→06:13)
[2021-02-04] MEDS: HYDROcodone/ACETAMINOPHEN 5-325 MG TAB PO PRN ×2 (06:16→13:20)
--- NOTE | 2021-02-04 06:44 | Progress Note ---
Assessment and Plan Pt awake she and SO caring for NB. VSS H&H 05/13 drop r/t blood loss from surgery Pt is w/o s/sx of anemia Doing well s/p c/s P:continue pathway Advance diet and activity as tolerated. All concerns addressed. Declines circumcision Subjective - Subjective Date of service: 02/04/21 (no c/o voiced; A&O) Principal diagnosis: Day #1 s/p primary section Patient reports: appetite normal, voiding normally, pain well controlled, ambulating normally [place]: doing well Objective - Vital Signs Latest vital signs: Vital Signs Temp Pulse Resp BP Pulse Ox 02/04/21 00:24 98.2 F 101 H 20 100/55 96 02/03/21 21:05 97.8 F 106 H 20 91/56 96 02/03/21 15:39 98.1 F 102 H 20 100/57 96 02/03/21 11:57 98.2 F 94 H 20 110/64 98 02/03/21 08:08 98.4 F 86 20 112/61 92 Intake and Output 02/03/21 02/03/21 02/04/21 14:59 22:59 06:59 Intake Total 360 600 480 Output Total 600 1100 800 Balance -240 -500 -320 Intake: Oral 360 600 120 Intake, Free Water 360 Output: Urine 600 1100 800 Indwelling Catheter 600 Void 1100 800 Other: Total, Intake Amount 240 120 120 Total, Output Amount 600 800 800 # Voids Void 1 - Exam Breasts: Present: normal Cardiovascular: Present: Regular rate Lungs: Present: Clear to auscultation Abdomen: Present: normal appearance, soft Uterus: Present: normal, fundal height below umbilicus Extremities: Present: normal Incision: Present: normal, dry, intact, dressed (to be removed this AM) - Labs Labs: Abnormal lab results 02/03/21 Range/Units 15:28 Hgb 9.6 L (10.1-14.3) gm/dl Hct 28.6 L (30.3-42.9) %
[2021-02-04] MEDS ORDERED: IBUPROFEN 800 MG TAB PO PRN (08:00)
--- NOTE | 2021-02-05 08:16 | Discharge Summary ---
Providers - Providers Date of Admission: 02/02/21 05:01 Date of discharge: 02/05/21 (Pt agrees to discharge home.) Attending physician: KILO HAQUE Primary care physician: KILO HAQUE Hospitalization Reason for admission: active labor Delivery: Procedure: primary low transverse Episiotomy: none Laceration: none Incision: normal, dry, intact Other procedures: none complications: none Discharge diagnosis: IUP at term delivered Wall baby: male Pertinent studies: Pt does not want circumcision. Hospital course: S: Pt doing well. Ambulating, voiding, and passing flatus okay. BC: larissa [facility] does this admission. O: VSS. I&O's adequate. Incision open to air, steri-strips intact, no drainage or s/sx of infection noted. H/H 9.6/28.6, asymptomatic anemia of delivery. A: 20 y.o. s/p primary @ term, in stable condition and can be discharge home. P: Discharge home with instructions. Pt to schedule an incision check in the office in 1 week. Condition at discharge: Good Disposition: DC-01 TO HOME OR SELFCARE Plan - Discharge Medications Prescriptions: Docusate Sodium [Colace] 100 mg PO BID PRN #60 capsule PRN Reason: Constipation Ferrous Sulfate [Feosol 325 MG tab] 325 mg PO QDAY #60 tablet Ibuprofen [Motrin 800 MG tab] 800 mg PO Q8HR PRN #30 tablet PRN Reason: Pain, Moderate (4-6) oxyCODONE /ACETAMINOPHEN [Percocet 5/325] 1 tab PO Q4HR #30 tab - Provider Discharge Summary Activity: routine, no sex for 6 weeks, no heavy lifting 4 weeks, no strenuous exercise Diet: routine Instructions: routine Additional instructions: [] Smoking cessation referral if applicable(refer to patient education folder for contact #) [] Refer to [facility] Booklet Call your doctor immediately for: * Fever > 100.5 * Heavy vaginal bleeding ( >1 pad per hour) * Severe persistent headache * Shortness of breath * Reddened, hot, painful area to leg or breast * Drainage or odor from incision. * Keep incision clean and dry at all times and follow doctor's instructions regarding bathing/showering Congratulations on your baby boy!! Thank you for allowing us to take care of you! Please schedule an incision check in the office in 1 week. Please take medication as prescribed by your provider. Should you have any questions or concerns after discharge, please do not hesitate to call the office at [phone]. - Follow up plan Follow up: KILO HAQUE MD [Primary Care Provider] - 7 Days
[2021-02-05] MEDS: HYDROcodone/ACETAMINOPHEN 5-325 MG TAB PO PRN (08:29)
[2021-02-05 13:10] VITALS: BP 110/60
== END 2021-02-05 14:10 | disposition home or self-care (01) | DRG 765 ==
LOC: APU 03:01 → TRG 03:01 → LD 05:01 → TRG 05:01 → OB 02-03 02:48
PROVIDERS: ADMIT Obstetrics & Gynecology; ATTEND Obstetrics & Gynecology
PROC: 10D00Z1 Extraction of Products of Conception, Low, Open Approach (ICD-10-PCS; principal; 2021-02-03)
PROC: 3E0234Z Introduction of Serum, Toxoid and Vaccine into Muscle, Percutaneous Approach (ICD-10-PCS; 2021-02-04)
DX: O77.0 Labor and delivery complicated by meconium in amniotic fluid (principal); Q25.6 Stenosis of pulmonary artery; O99.354 Diseases of the nervous system complicating childbirth; O99.214 Obesity complicating childbirth; E66.9 Obesity, unspecified; O99.62 Diseases of the digestive system complicating childbirth; Z20.822 Contact with and (suspected) exposure to COVID-19; K21.9 Gastro-esophageal reflux disease without esophagitis; G43.909 Migraine, unspecified, not intractable, without status migrainosus; Z3A.41 41 weeks gestation of pregnancy; Z37.0 Single live birth; Z23 Encounter for immunization; O99.513 Diseases of the respiratory system complicating pregnancy, third trimester
CPT/HCPCS: 36415; 59025; 85014; 85018; 85027; 86592; 86850; 86900; 86901; 90715; G0378; J0690; J1100; J1885; J2210; J2405; J2590; J2765; J3010; J7120; U0003